=== PATIENT | male | born 1950 | race Hispanic/Latino ===

== ENCOUNTER 2018-04-04 06:36 | Day surgery (SDC) | payer MEDICARE, BC ==
[2015-03-10 09:53] VITALS: BMI 34.4
[2018-04-04 07:02] VITALS: RESP 20
[2018-04-04 07:10] LABS: BASO # 0.03 K/mm3 (0.0-2.0); BASO % 0.3 % (0.0-3.0); EOS # 0.2 (0.0-0.7); EOS % 1.9 % (1.5-5.0); GRAN # 6.82 (1.4-6.5); HEMOGLOBIN 15.3 g/dL (14.0-18.0); LYMPH # 3.9 (1.2-3.4); LYMPH % 33.4 % (22.0-35.0); MEAN CELL VOLUME 83.2 fl (80.0-105.0); MEAN CORPUSCULAR HGB CONC 33.6 g/dl (31.0-37.0); MEAN PLATELET VOLUME 11.5 fl (7.0-11.0); MONO # 0.8 (0.1-0.6); MONO % 6.4 % (1.0-6.0); RBC 5.47 10^6/uL (3.5-6.1); RED CELL DISTRIBUTION WIDTH 13.9 % (11.5-14.5); WHITE BLOOD COUNT 11.7 10^3/ul (4.5-11.0)
[2018-04-04 07:16] LABS: INR 1.09; PARTIAL THROMBOPLASTIN TIME 26.7 Seconds (25.1-36.5); PROTHROMBIN TIME 12.6 SECONDS (9.4-12.5)
[2018-04-04] MEDS ORDERED: Lidocaine PF 2% (5 ml) Inj (For Cardiac Arrhy) ONE (08:01)
[2018-04-04] MEDS ORDERED: Propofol 10 mg/ml Inj (20 ML) ONE ×3 (08:01→08:37)
[2018-04-04] MEDS ORDERED: Sodium Chloride 0.9% 1,000 ML IV SCH (09:30)
[2018-04-04 10:11] VITALS: BP 138/72; PULSE 65; TEMP 97.7; O2SAT 98
== END 2018-04-04 10:57 | disposition home or self-care (01) ==
LOC: ENDO 06:36
PROVIDERS: ATTEND Internal Medicine Gastroenterology
DX: Z12.11 Encounter for screening for malignant neoplasm of colon (principal); D12.2 Benign neoplasm of ascending colon; D12.3 Benign neoplasm of transverse colon; K62.5 Hemorrhage of anus and rectum; K57.30 Diverticulosis of large intestine without perforation or abscess without bleeding; Q43.8 Other specified congenital malformations of intestine; K64.8 Other hemorrhoids; R19.7 Diarrhea, unspecified; E11.9 Type 2 diabetes mellitus without complications; I10 Essential (primary) hypertension; Z86.010 Personal history of colon polyps; Z86.718 Personal history of other venous thrombosis and embolism; Z90.49 Acquired absence of other specified parts of digestive tract
CPT/HCPCS: 36415; 45380; 45384; 45385; 85025; 85610; 85730; 88305; J2704; J3010; J7030

== ENCOUNTER 2018-05-27 09:24 | Inpatient (IN) | payer MEDICARE, BC ==
[2015-03-10 09:53] VITALS: BMI 34.4
[2018-05-27] MEDS ORDERED: HYDROmorphone 0.5 mg/0.5 ml ISec IVP PRN (09:35)
[2018-05-27] MEDS ORDERED: Lactated Ringer's 1,000 ML IV SCH ×2 (09:45→12:30)
[2018-05-27 10:37] LABS: BASO # 0.01 K/mm3 (0.0-2.0); BASO % 0.1 % (0.0-3.0); EOS # 0.1 (0.0-0.7); EOS % 0.7 % (1.5-5.0); GRAN # 5.98 (1.4-6.5); GRAN % 61.1 % (50.0-68.0); HEMOGLOBIN 13.9 g/dL (14.0-18.0); LYMPH # 3.1 (1.2-3.4); LYMPH % 31.5 % (22.0-35.0); MEAN CORPUSCULAR HEMOGLOBIN 28.4 pg (25.0-35.0); MEAN CORPUSCULAR HGB CONC 34.2 g/dl (31.0-37.0); MEAN PLATELET VOLUME 11.1 fl (7.0-11.0); MONO # 0.7 (0.1-0.6); MONO % 6.6 % (1.0-6.0); RBC 4.89 10^6/uL (3.5-6.1); RED CELL DISTRIBUTION WIDTH 13.8 % (11.5-14.5); WHITE BLOOD COUNT 9.8 10^3/uL (4.5-11.0)
[2018-05-27 10:42] LABS: INR 1.2; PROTHROMBIN TIME 13.8 SECONDS (9.4-12.5)
[2018-05-27 10:47] LABS: BLOOD UREA NITROGEN 13 mg/dL (7-21); CALCIUM 8.7 mg/dL (8.4-10.5); GFR NON-AFRICAN AMERICAN > 60
[2018-05-27] MEDS ORDERED: Midazolam 2 MG/2 ML VIAL ONE (11:43)
[2018-05-27] MEDS ORDERED: Propofol 10 mg/ml Inj (20 ML) ONE (11:43)
[2018-05-27] MEDS ORDERED: Rocuronium 10 mg/ml (5 ml) ONE ×2 (11:45→13:29)
[2018-05-27] MEDS ORDERED: metroNIDAZOLE IV 500 mg/100 ml 500 MG/100 ML BAG ONE (12:45)
[2018-05-27] MEDS ORDERED: Ciprofloxacin 400mg/200ml D5W 400 MG/200 ML BAG IVPB ONE (12:46)
[2018-05-27] MEDS ORDERED: Bupivacaine 0.5% 50 ML IJ ONE (12:46)
[2018-05-27] MEDS ORDERED: MetroNIDAZOLE 500 mg/100 ml IVPB ONE (12:47)
[2018-05-27] MEDS ORDERED: Ciprofloxacin 400mg/200ml D5W IVPB ONE (12:47)
[2018-05-27] MEDS ORDERED: Bupivacaine 0.5% Inj(30mL) IJ ONE ×2 (13:05→14:50)
[2018-05-27] MEDS ORDERED: Sevoflurane - Inhalation Anesthetic Liq (250 ml) ONE (13:29)
[2018-05-27] MEDS ORDERED: Neostigmine Methylsulfate 3mg/3ml Syringe IV ONE (13:42)
[2018-05-27] MEDS ORDERED: Glycopyrrolate 0.2 mg/ml (2ml vial) ONE (13:43)
--- NOTE | 2018-05-27 15:15 | PCM.SURG1 ---
Surgeon's Initial Post Op Note - Surgeon's Notes Surgeon: Dr. Day Chartered Wealth Manager: Dr. Correa PGY4, Dr. Lees PGY3 Type of Anesthesia: General Endo Pre-Operative Diagnosis: Multiple right colon tubuloadenomas Operative Findings: see operative report Post-Operative Diagnosis: same Operation Performed: open right hemicolectomy. ileocolic anastomosis Specimen/Specimens Removed: right colon and distal portion of ileum Estimated Blood Loss: EBL {In ML}: 200 Blood Products Given: N/A Drains Used: No Drains Post-Op Condition: Good Date of Surgery/Procedure: 05/27/18 Time of Surgery/Procedure: 15:14
[2018-05-27] MEDS ORDERED: HYDROmorphone 0.5 mg/0.5 ml ISec IVP ONE ×2 (15:30→16:05)
[2018-05-27] MEDS ORDERED: HYDROmorphone 0.5 mg/0.5 ml ISec ONE ×2 (15:35→16:12)
[2018-05-27] MEDS: metroNIDAZOLE IV 500 mg/100 ml 500 MG/100 ML BAG IVPB SCH (20:17)
[2018-05-27] MEDS ORDERED: Influenza Vaccine 60 mcg/0.5 mL SYR (4YR UP) IM ONE (21:27)
[2018-05-27] MEDS ORDERED: Pneumococcal 23-Valent Vaccine IM ONE (21:27)
[2018-05-27] MEDS: Insulin Reg-LOW-Coverage SC SCH (21:59)
[2018-05-27] MEDS ORDERED: metroNIDAZOLE IV 500 mg/100 ml 500 MG/100 ML BAG IVPB SCH (22:00)
[2018-05-27] MEDS: HYDROmorphone 1 mg/ml ISec IVP PRN (23:08)
[2018-05-28] MEDS: Ciprofloxacin 400mg/200ml D5W 400 MG/200 ML BAG IVPB SCH ×2 (00:39→12:36)
[2018-05-28] MEDS: metroNIDAZOLE IV 500 mg/100 ml 500 MG/100 ML BAG IVPB SCH (04:15)
[2018-05-28] MEDS: HYDROmorphone 1 mg/ml ISec IVP PRN ×5 (04:18→22:56)
[2018-05-28 06:45] LABS: BASO # 0.01 K/mm3 (0.0-2.0); BASO % 0.1 % (0.0-3.0); EOS # 0.1 (0.0-0.7); EOS % 0.4 % (1.5-5.0); GRAN # 8.47 (1.4-6.5); GRAN % 74.5 % (50.0-68.0); HEMOGLOBIN 12.4 g/dL (14.0-18.0); LYMPH % 17.5 % (22.0-35.0); MEAN CELL VOLUME 83.2 fl (80.0-105.0); MEAN CORPUSCULAR HEMOGLOBIN 27.7 pg (25.0-35.0); MEAN CORPUSCULAR HGB CONC 33.3 g/dl (31.0-37.0); MEAN PLATELET VOLUME 11.5 fl (7.0-11.0); MONO # 0.9 (0.1-0.6); MONO % 7.5 % (1.0-6.0); RBC 4.47 10^6/uL (3.5-6.1); RED CELL DISTRIBUTION WIDTH 13.9 % (11.5-14.5); WHITE BLOOD COUNT 11.4 10^3/uL (4.5-11.0)
[2018-05-28 07:14] LABS: BLOOD UREA NITROGEN 9 mg/dL (7-21); GFR NON-AFRICAN AMERICAN > 60
[2018-05-28] MEDS ORDERED: Potassium Ch 20mEq in D5-1/2NS 1,000 ML IV SCH (08:00)
[2018-05-28] MEDS: Insulin Reg-LOW-Coverage SC SCH ×4 (08:49→22:03)
[2018-05-28] MEDS: Enoxaparin 40 mg Syringe SC SCH (09:08)
--- NOTE | 2018-05-28 10:11 | CP.PCM.PN ---
Subjective - Date & Time of Evaluation Date of Evaluation: 05/28/18 Time of Evaluation: 07:00 - Subjective Subjective: General Surgery Dr. Engel Pt S&E @bedside. Pt s/p open right hemicolectomy. Pt tolerated procedure well w/ no complications. No acute events overnight. pt has no complaints. pain well controlled. denies F/C, N/V, D/C. tolerating CLD. (-)Flatus/BM Objective - Vital Signs/Intake and Output Vital Signs (last 24 hours): Temp Pulse Resp BP Pulse Ox 98.0 F 88 20 140/80 96 05/28/18 06:00 05/28/18 06:00 05/28/18 06:00 05/28/18 09:08 05/28/18 06:00 Intake and Output: 05/28/18 05/28/18 06:59 18:59 Intake Total 1740 Output Total 2100 Balance -360 - Medications Medications: Current Medications Acetaminophen (Tylenol 325mg Tab) 650 mg PO Q6H PRN PRN Reason: Pain, Mild (1-3) Amlodipine Besylate (Norvasc) 10 mg PO QAM [facility] Last Admin: 05/28/18 09:08 Dose: 10 mg Atorvastatin Calcium ([facility]) [facility] [place] Last Admin: 05/28/18 09:08 Dose: 20 mg Enoxaparin Sodium (Lovenox) 40 mg SC DAILY [facility]; Protocol Last Admin: 05/28/18 09:08 Dose: 40 mg Glipizide (Glucotrol) 5 mg PO BID [facility] Last Admin: 05/28/18 09:08 Dose: 5 mg Hydromorphone HCl (Dilaudid) 1 mg IVP Q4H PRN PRN Reason: Pain, moderate (4-7) Last Admin: 05/28/18 08:49 Dose: 1 mg Ciprofloxacin (Cipro 400mg/200ml Dsw) 400 mg in 200 mls @ 133.3 mls/hr IVPB Q12H [facility]; Protocol Stop: 05/28/18 14:18 Last Admin: 05/28/18 00:39 Dose: 133.3 mls/hr Potassium Chloride/Dextrose/Sod Cl (Potassium Chl 20 Meq In D5-1/2ns) 1,000 mls @ 70 mls/hr IV .[id number] [facility] Last Admin: 05/28/18 09:32 Dose: 70 mls/hr Insulin Human Regular (Humulin R Low) 0 units SC ACHS [facility]; Protocol Last Admin: 05/28/18 08:49 Dose: 1 unit Metformin HCl (Glucophage) 1,000 mg PO BID [facility] Last Admin: 05/28/18 09:08 Dose: 1,000 mg Ondansetron HCl (Zofran Inj) 4 mg IVP Q6 PRN PRN Reason: Nausea/Vomiting Ramipril (Altace) 10 mg PO QAM [facility] Last Admin: 05/28/18 09:07 Dose: 10 mg - Labs Labs: 05/28/18 06:00 05/28/18 06:00 PT 13.8 SECONDS (9.4-12.5) H 05/27/18 10:25 INR 1.20 05/27/18 10:25 APTT 27.0 Seconds (25.1-36.5) 05/27/18 10:25 - Constitutional Appears: Non-toxic, No Acute Distress - Head Exam Head Exam: NORMAL INSPECTION - Eye Exam Eye Exam: Normal appearance - ENT Exam ENT Exam: Mucous Membranes Moist - Respiratory Exam Respiratory Exam: NORMAL BREATHING PATTERN. absent: Accessory Muscle Use, Respiratory Distress - Cardiovascular Exam Cardiovascular Exam: absent: Bradycardia, Tachycardia - GI/Abdominal Exam GI & Abdominal Exam: Soft, Tenderness (appropriate TTP yaneth-incisonal). absent: Distended, Firm, Guarding, Rigid, Rebound Additional comments: incisions c/d/i - Exam Additional comments: shankar in place draining clear yellow urine - Neurological Exam Neurological Exam: Alert, Awake, Oriented x3 - Psychiatric Exam Psychiatric exam: Normal Affect, Normal Mood - Skin Skin Exam: Dry, Intact, Normal Color, Warm Assessment and Plan - Assessment and Plan (Free Text) Assessment: 67 y/o M POD#1 s/p R hemicolectomy Plan: - cont CLD - d/c shankar - strict Is&Os - transition to PO pain meds - monitor bowel function - Physical Therapy eval - encourage OOB to chair/Amb/IS use Pt discussed w/ Dr. Toro Blankenship DO PGY3
--- NOTE | 2018-05-28 14:02 | CP.PCM.CON ---
<Elliott Chance - Last Filed: 05/28/18 15:12> History of Present Illness - History of Present Illness History of Present Illness: Elliott Chance PGY2 IM Consult Note for Dr. Jones Mr. Horvath is a 67 year old male with a PMH of DM2, HTN, HLD, nephrolithiasis and BPH who was admitted for multiple right colon tubular adenomas S/P open right hemicolectomy, with ileocolic anastomosis performed on 05/27/[address] Engel. Medical team is consulted for medical management of chronic diseases. The patient had underwent a colonoscopy with Dr. Tijerina on 04/04/18 which showed diverticulosis, colon polyps, ascending colon polypoid lesion, hypotonic redundant colon and internal hemorrhoids. Biopsies collected from this colonoscopy were positive for tubular adenoma. When evaluated post-op, the patient denies severe abdominal pain, nausea/vomiting, chest pain or shortness of breath, dysuria or difficulty urinating, weakness, headaches. He also denies passing flatus or any BMs, but he is urinating without difficulty. His pain is tolerated on the current regimen. Prior charts were reviewed including postop notes, and endoscopy/pathology reports. 12 point ROS was reviewed and is otherwise unremarkable. PMD: Dr. francis PMH: As above PSH: Prostate surgery, umbilical hernia x2, mastoid cyst removal x2, craniotomy Meds: As per MAR, reviewed Allergies: Penicillin (hives) SHx: Former tobacco smoker (quit more than 15 years ago), regular marijuana user , denies EtOH or other drug use FHx: Patient denies history of heart disease or cancers Review of Systems - Review of Systems All systems: reviewed and no additional remarkable complaints except (as per HPI) Past Patient History - Past Medical History & Family History Past Medical History?: Yes Past Family History: Reviewed and not pertinent - Past Social History Smoking Status: Former Smoker Alcohol: None Drugs: Cannabis - CARDIAC Hx Cardiac Disorders: No Hx Hypercholesterolemia: Yes Hx Hypertension: Yes Hx Pacemaker: No - PULMONARY Hx Respiratory Disorders: No (SMOKED 15 YRS AGO) - NEUROLOGICAL Hx Dizziness: Yes (VERTIGO) Hx Vertigo: Yes - HEENT Hx HEENT Problems: No - RENAL Hx Chronic Kidney Disease: No - ENDOCRINE/METABOLIC Hx Endocrine Disorders: Yes Hx Diabetes Mellitus Type 2: Yes - HEMATOLOGICAL/ONCOLOGICAL Hx Blood Disorders: Yes - INTEGUMENTARY Hx Dermatological Problems: No - MUSCULOSKELETAL/RHEUMATOLOGICAL Hx Musculoskeletal Disorders: No Hx Falls: No - GASTROINTESTINAL Hx Gastrointestinal Disorders: Yes (UMBILICAL NERNIA,INGUINAL HERNIA,APPENDECTOMY,) - GENITOURINARY/GYNECOLOGICAL Hx Genitourinary Disorders: Yes Hx Prostate Problems: Yes - PSYCHIATRIC Hx Emotional Abuse: No Hx Physical Abuse: No Hx Substance Use: No - SURGICAL HISTORY Hx Surgeries: Yes (MASTOIDECTOMY X 2,UMBILICAL HERNIA REPAIR,PROSTATE SX,CRANIAL SX) Hx Appendectomy: Yes - ANESTHESIA Hx Anesthesia Reactions: Yes ("WAKES UP LOUD") Hx Malignant Hyperthermia: No Meds Allergies/Adverse Reactions: Allergies Allergy/AdvReac Type Severity Reaction Status Date / Time Penicillins Allergy RASH Verified 05/27/18 21:01 - Medications Medications: Current Medications Acetaminophen (Tylenol 325mg Tab) 650 mg PO Q6H PRN PRN Reason: Pain, Mild (1-3) Amlodipine [facility]ylate ([facility]asc) [facility] [place] Last Admin: 05/28/18 09:08 Dose: 10 mg Atorvastatin Calcium (Lipitor) 20 mg PO QAM [facility] Last Admin: 05/28/18 09:08 Dose: 20 mg Enoxaparin Sodium (Lovenox) 40 mg SC DAILY [facility]; Protocol Last Admin: 05/28/18 09:08 Dose: 40 mg Glipizide (Glucotrol) 5 mg PO BID [facility] Last Admin: 05/28/18 09:08 Dose: 5 mg Hydromorphone HCl (Dilaudid) 1 mg IVP Q4H PRN PRN Reason: Pain, moderate (4-7) Last Admin: 05/28/18 13:51 Dose: 1 mg Ciprofloxacin (Cipro 400mg/200ml Dsw) 400 mg in 200 mls @ 133.3 mls/hr IVPB Q12H [facility]; Protocol Stop: 05/28/18 14:18 Last Admin: 05/28/18 12:36 Dose: 133.3 mls/hr Insulin Human Regular (Humulin R Low) 0 units SC ACHS [facility]; Protocol Last Admin: 05/28/18 12:05 Dose: 2 unit Metformin HCl (Glucophage) 1,000 mg PO BID [facility] Last Admin: 05/28/18 09:08 Dose: 1,000 mg Ondansetron HCl (Zofran Inj) 4 mg IVP Q6 PRN PRN Reason: Nausea/Vomiting Pantoprazole Sodium (Protonix Inj) 40 mg IVP DAILY [facility] Last Admin: 05/28/18 12:05 Dose: 40 mg Ramipril (Altace) 10 mg PO QAM [facility] Last Admin: 05/28/18 09:07 Dose: 10 mg Physical Exam - Constitutional Appears: Well, Non-toxic, No Acute Distress - Head Exam Head Exam: ATRAUMATIC, NORMAL INSPECTION, NORMOCEPHALIC - Eye Exam Eye Exam: EOMI, Normal appearance, PERRL - ENT Exam ENT Exam: Mucous Membranes Moist, Normal External Ear Exam, Normal Oropharynx - Neck Exam Neck exam: Positive for: Full Rom, Normal Inspection. Negative for: Tenderness - Respiratory Exam Respiratory Exam: NORMAL BREATHING PATTERN. absent: Rales, Rhonchi, Wheezes, Respiratory Distress - Cardiovascular Exam Cardiovascular Exam: RRR, +S1, +S2. absent: JVD, Systolic Murmur - GI/Abdominal Exam GI & Abdominal Exam: Hyperactive Bowel Sounds, Soft. absent: Distended, Tenderness Additional comments: midline incision post surgery - Extremities Exam Extremities exam: Positive for: full ROM, normal inspection. Negative for: pedal edema, tenderness Additional comments: AE stockings worn - Back Exam Back exam: NORMAL INSPECTION - Neurological Exam Neurological exam: Alert, CN II-XII Intact, Normal Gait, Oriented x3 - Psychiatric Exam Psychiatric exam: Normal Affect, Normal Mood - Skin Skin Exam: Normal Color, Warm Results - Vital Signs Recent Vital Signs: Last Vital Signs Temp 98.0 F 05/28/18 06:00 Pulse 88 05/28/18 06:00 Resp 20 05/28/18 06:00 BP 140/80 05/28/18 09:08 Pulse Ox 96 05/28/18 06:00 - Labs Result Diagrams: 05/28/18 06:00 05/28/18 06:00 Labs: Laboratory Results - last 24 hr 05/27/18 05/28/18 05/28/18 21:03 06:00 06:00 WBC 11.4 H RBC 4.47 Hgb 12.4 L Hct 37.2 L MCV 83.2 MCH 27.7 MCHC 33.3 RDW 13.9 Plt Count 165 MPV 11.5 H Gran % 74.5 H Lymph % (Auto) 17.5 L [place] % (Auto) 7.5 H Eos % (Auto) 0.4 L Baso % (Auto) 0.1 Gran # 8.47 H Lymph # (Auto) 2.0 [place] # (Auto) 0.9 H Eos # (Auto) 0.1 Baso # (Auto) 0.01 Sodium 138 Potassium 4.1 Chloride 106 Carbon Dioxide 24 Anion Gap 13 BUN 9 Creatinine 0.8 Est GFR ( Amer) > 60 Est GFR (Non-Af Amer) > 60 POC Glucose (mg/dL) 206 H Random Glucose 193 H Calcium 8.0 L Phosphorus 3.1 Magnesium 1.9 05/28/18 05/28/18 07:23 11:17 WBC RBC Hgb Hct MCV MCH MCHC RDW Plt Count MPV Gran % Lymph % (Auto) [place] % (Auto) Eos % (Auto) Baso % (Auto) Gran # Lymph # (Auto) [place] # (Auto) Eos # (Auto) Baso # (Auto) Sodium Potassium Chloride Carbon Dioxide Anion Gap BUN Creatinine Est GFR ( Amer) Est GFR (Non-Af Amer) POC Glucose (mg/dL) 173 H 209 H Random Glucose Calcium Phosphorus Magnesium Assessment & Plan - Assessment and Plan (Free Text) Assessment: 67 year old male with a PMH of DM2, HTN, HLD, nephrolithiasis and BPH who was admitted for multiple right colon tubular adenomas S/P open right hemicolectomy, with ileocolic anastomosis performed on 05/27/[address] Engel. He is POD 1 and is tolerating his CLD well, but with no flatus or BM's yet. Medical team is consulted for management of chronic diseases. VS, prior chart and labs were reviewed. BP is stable on current medications. His FS are stable on current regimen. His pain is also tolerable. Plan: - Metformin held to reduce risk of nephropathy - Continue insulin sliding scale with goal FS 100-180 - Continue glipizide - Continue Lipitor - Continue Norvasc and ramipril with goal of BP in normal range around 130/80 - Continue Lovenox for DVT PPX - Continue Protonix for GI PPX - Continue Flomax - Continue Zofran as needed for nausea - Continue Tylenol as needed for fever - Continue Dilaudid as needed for pain - Encouraged on incentive spirometry use - There are no current signs of infection, but monitor for fevers - Dietitian referral is ordered - Activity as tolerated - Advance diet as tolerated - Monitor for BMs - PT eval is pending - Urology is consulted for history of BPH - We will order bladder scan as needed - Further recs per Dr. Jones Case was reviewed and discussed with attending, Dr. Karen Chance PGY 2 <Roland Jones - Last Filed: 05/28/18 16:36> Meds - Medications Medications: Current Medications Acetaminophen (Tylenol 325mg Tab) 650 mg PO Q6H PRN PRN Reason: Pain, Mild (1-3) Amlodipine Besylate (Norvasc) 10 mg PO QAM [facility] Last Admin: 05/28/18 09:08 Dose: 10 mg Atorvastatin Calcium (Lipitor) 20 mg PO QAM [facility] Last Admin: 05/28/18 09:08 Dose: 20 mg Enoxaparin Sodium (Lovenox) 40 mg SC DAILY [facility]; Protocol Last Admin: 05/28/18 09:08 Dose: 40 mg Glipizide (Glucotrol) 5 mg PO BID [facility] Last Admin: 05/28/18 09:08 Dose: 5 mg Hydromorphone HCl (Dilaudid) 1 mg IVP Q4H PRN PRN Reason: Pain, severe (8-10) Insulin Human Regular (Humulin R Low) 0 units SC ACHS [facility]; Protocol Last Admin: 05/28/18 12:05 Dose: 2 unit Metformin HCl (Glucophage) 1,000 mg PO BID [facility] Last Admin: 05/28/18 09:08 Dose: 1,000 mg Ondansetron HCl (Zofran Inj) 4 mg IVP Q6 PRN PRN Reason: Nausea/Vomiting Pantoprazole Sodium (Protonix Inj) 40 mg IVP DAILY [facility] Last Admin: 05/28/18 12:05 Dose: 40 mg Ramipril (Altace) 10 mg PO QAM [facility] Last Admin: 05/28/18 09:07 Dose: 10 mg Tramadol HCl (Ultram) 50 mg PO Q6 PRN PRN Reason: Pain, moderate (4-7) Results - Vital Signs Recent Vital Signs: Last Vital Signs Temp 98.0 F 05/28/18 06:00 Pulse 88 05/28/18 06:00 Resp 20 05/28/18 06:00 BP 140/80 05/28/18 09:08 Pulse Ox 96 05/28/18 06:00 - Labs Result Diagrams: 05/28/18 06:00 05/28/18 06:00 Labs: Laboratory Results - last 24 hr 05/27/18 05/28/18 05/28/18 21:03 06:00 06:00 WBC 11.4 H RBC 4.47 Hgb 12.4 L Hct 37.2 L MCV 83.2 MCH 27.7 MCHC 33.3 RDW 13.9 Plt Count 165 MPV 11.5 H Gran % 74.5 H Lymph % (Auto) 17.5 L [place] % (Auto) 7.5 H Eos % (Auto) 0.4 L Baso % (Auto) 0.1 Gran # 8.47 H Lymph # (Auto) 2.0 [place] # (Auto) 0.9 H Eos # (Auto) 0.1 Baso # (Auto) 0.01 Sodium 138 Potassium 4.1 Chloride 106 Carbon Dioxide 24 Anion Gap 13 BUN 9 Creatinine 0.8 Est GFR ( Amer) > 60 Est GFR (Non-Af Amer) > 60 POC Glucose (mg/dL) 206 H Random Glucose 193 H Calcium 8.0 L Phosphorus 3.1 Magnesium 1.9 05/28/18 05/28/18 07:23 11:17 WBC RBC Hgb Hct MCV MCH MCHC RDW Plt Count MPV Gran % Lymph % (Auto) [place] % (Auto) Eos % (Auto) Baso % (Auto) Gran # Lymph # (Auto) [place] # (Auto) Eos # (Auto) Baso # (Auto) Sodium Potassium Chloride Carbon Dioxide Anion Gap BUN Creatinine Est GFR ( Amer) Est GFR (Non-Af Amer) POC Glucose (mg/dL) 173 H 209 H Random Glucose Calcium Phosphorus Magnesium Assessment & Plan - Assessment and Plan (Free Text) Plan: Pt seen and examined. I have reviewed the note of the medical affairs director and agree with it. I have discussed the assessment and plan with the resident. I have reviewed the patient's labs and medications. Pt with R hemicolectomy doing well. I have been asked by surgery to consult for management for the DM-2 and HTN. Pt will continue with Glipizide but hold his Metformin. He is on Norvasc and Ramipril for his HTN. He is on Flomax for his BPH. He was sitting in a chair and not having any pain. Check FS and cover with insulin prn. Dyslipidemia is being treated with Lipitor.
--- NOTE | 2018-05-28 20:34 | OP ---
PROCEDURE DATE: 05/27/2018 PREOPERATIVE DIAGNOSIS: Sessile polyp of the right colon. POSTOPERATIVE DIAGNOSIS: Sessile polyp of the right colon. PROCEDURE PERFORMED: Open right colectomy. SURGEON: Massimo Engel MD ASSISTANTS: Dr. Correa and Dr. Lees. ANESTHESIA: General endotracheal anesthesia. ANESTHESIOLOGIST: Dr. Zimmer. ESTIMATED BLOOD LOSS: 100 mL. SPECIMEN: Right colon. INDICATION FOR PROCEDURE: The patient is a 67-year-old male with history of sessile polyp at the area adjacent to the ileocecal valve in the colon. This was attempted to be resected; however, unable to be resected and therefore, decision was made to proceed with surgical excision of the right colon. DESCRIPTION OF PROCEDURE: The patient was brought to the operating room and placed on the operating table in supine position. The patient was connected to EKG, blood pressure, and pulse oximetry monitors. The patient then had a time-out procedure done where everybody in the room agreed as to the patient's identity, diagnosis, and procedure to be performed. Both the surgical plan for the procedure as well as the postoperative course were discussed with the OR team. The patient underwent general endotracheal anesthesia and was prepped and draped in the usual sterile fashion. Using a #15 blade, an incision was made extending from just below the umbilicus to above the mid epigastric area. This incision was carried through the subcutaneous fat and fascia down into the abdominal cavity. Once the access to the abdominal cavity was obtained, the inferior portion of the incision appeared to contain a mesh from prior hernia repair. The mesh was carefully trimmed out and protected with lap bandage. Now, we proceeded with careful mobilization of the right colon by incising the tissue along the right pericolic gutter and mobilizing the right colic mesentery through the cecum and all the way up to the hepatic flexure and prostate. Once the specimen was completely mobilized, it was elevated up in there and the ileocecal artery was identified at its base just below the duodenum. This was carefully dissected out and ligated at its base by sweeping all the lymph nodes adjacent to it with this specimen. Once the artery was ligated, we then proceeded and transected the mesentery towards the small bowel just about 10 cm proximal to the ileocecal valve. The colon was transected at about proximal transverse colon including a portion of the right branch of the transverse colic artery. All this was then sent as a specimen. A standard [id number] anastomosis was created between the ileum and transverse colon using LIANNE and TA staplers. Once the anastomosis was completed, the stitch was placed in the crotch of the anastomosis for reinforcement. The anastomoses were returned into the abdominal cavity. The abdominal cavity was then copiously irrigated and all the irrigant fluid was suctioned out. There was excellent hemostasis noted. We then proceeded with closure of the wound using #1 PDS in a running fashion. The skin was closed using surgical constance. The patient tolerated the procedure well and there were no complications. The patient was awakened and transferred to recovery room for further observation. Massimo Engel MD
[2018-05-29] MEDS: Insulin Reg-LOW-Coverage SC SCH ×4 (08:05→22:44)
--- NOTE | 2018-05-29 09:36 | CP.PCM.PN ---
<Elliott Chance - Last Filed: 05/29/18 11:30> Subjective - Date & Time of Evaluation Date of Evaluation: 05/29/18 Time of Evaluation: 07:36 - Subjective Subjective: Elliott Chance PGY2 IM Progress Note for Dr. Jones Patient was seen and examined at bedside. There were no acute overnight events. The patient remains afebrile and pain is well controlled. The patient denies passing flatus or BM's but is urinating w/ no issues and is having hiccups. He is tolerating his CLD well. Objective - Vital Signs/Intake and Output Vital Signs (last 24 hours): Temp Pulse Resp BP Pulse Ox 98.4 F 91 H 20 148/91 H 96 05/29/18 08:46 05/29/18 08:46 05/29/18 08:46 05/29/18 08:46 05/29/18 08:46 Intake and Output: 05/29/18 05/29/18 06:59 18:59 Intake Total 480 Output Total 800 Balance -320 - Medications Medications: Current Medications Acetaminophen (Tylenol 325mg Tab) 650 mg PO Q6H PRN PRN Reason: Pain, Mild (1-3) Amlodipine Besylate (Norvasc) 10 mg PO QAM [facility] Last Admin: 05/28/18 09:08 Dose: 10 mg Atorvastatin Calcium (Lipitor) 20 mg PO QAM [facility] Last Admin: 05/28/18 09:08 Dose: 20 mg Enoxaparin Sodium (Lovenox) 40 mg SC DAILY [facility]; Protocol Last Admin: 05/28/18 09:08 Dose: 40 mg Glipizide (Glucotrol) 5 mg PO BID [facility] Last Admin: 05/28/18 18:12 Dose: 5 mg Hydromorphone HCl (Dilaudid) 1 mg IVP Q4H PRN PRN Reason: Pain, severe (8-10) Last Admin: 05/28/18 22:56 Dose: 1 mg Insulin Human Regular (Humulin R Low) 0 units SC [facility]; Protocol Last Admin: 05/29/18 08:05 Dose: Not Given Metformin HCl (Glucophage) 1,000 mg PO BID [facility] Last Admin: 05/28/18 09:08 Dose: 1,000 mg Ondansetron HCl (Zofran Inj) 4 mg IVP Q6 PRN PRN Reason: Nausea/Vomiting Pantoprazole Sodium (Protonix Inj) 40 mg IVP DAILY [facility] Last Admin: 05/28/18 12:05 Dose: 40 mg Ramipril (Altace) 10 mg PO QAM [facility] Last Admin: 05/28/18 09:07 Dose: 10 mg Tramadol HCl (Ultram) 50 mg PO Q6 PRN PRN Reason: Pain, moderate (4-7) Last Admin: 05/29/18 04:09 Dose: 50 mg - Labs Labs: 05/28/18 06:00 05/28/18 06:00 PT 13.8 SECONDS (9.4-12.5) H 05/27/18 10:25 INR 1.20 05/27/18 10:25 APTT 27.0 Seconds (25.1-36.5) 05/27/18 10:25 - Constitutional Appears: Well, Non-toxic, No Acute Distress - Head Exam Head Exam: ATRAUMATIC, NORMAL INSPECTION, NORMOCEPHALIC - Eye Exam Eye Exam: EOMI, Normal appearance, PERRL - ENT Exam ENT Exam: Mucous Membranes Moist, Normal Oropharynx - Neck Exam Neck Exam: Full ROM, Normal Inspection. absent: Tenderness - Respiratory Exam Respiratory Exam: NORMAL BREATHING PATTERN. absent: Rales, Rhonchi, Wheezes, Respiratory Distress - Cardiovascular Exam Cardiovascular Exam: RRR, +S1, +S2. absent: JVD, Murmur - GI/Abdominal Exam GI & Abdominal Exam: Soft, Normal Bowel Sounds. absent: Distended, Tenderness Additional comments: midline incision w/ sutures (c/d w/ no bleeding) - Extremities Exam Extremities Exam: Full ROM, Normal Inspection. absent: Pedal Edema, Tenderness - Back Exam Back Exam: NORMAL INSPECTION - Neurological Exam Neurological Exam: Alert, Awake, Normal Gait, Oriented x3 - Psychiatric Exam Psychiatric exam: Normal Affect, Normal Mood - Skin Skin Exam: Normal Color, Warm Assessment and Plan - Assessment and Plan (Free Text) Assessment: 67 year old male with a PMH of DM2, HTN, HLD, nephrolithiasis and BPH who was admitted for multiple right colon tubular adenomas S/P open right hemicolectomy, with ileocolic anastomosis POD2. He is tolerating his CLD well, but with no flatus or BM's yet. Medical team is consulted for management of chronic diseases. VS, prior chart and labs were reviewed. BP is stable on current medications. His FS are stable on current regimen. His pain is also tolerable. Plan: - Continue insulin sliding scale with goal FS 100-180 - Continue glipizide - Continue Lipitor - Continue Norvasc and ramipril with goal of BP in normal range around 130/80 - Continue Lovenox for DVT PPX - Continue Protonix for GI PPX - Continue Flomax - Continue Zofran as needed for nausea - Continue Tylenol as needed for fever - Continue Dilaudid as needed for pain - Encouraged on incentive spirometry use - There are no current signs of infection, but monitor for fevers - Dietitian referral is ordered - Activity as tolerated - Advance diet as tolerated - Monitor for BMs - PT eval is pending - Urology is consulted for history of BPH, however, patient is urinating w/o difficulty - We will order bladder scan as needed - care per primary surgery team - can d/c when cleared by surgery and should follow-up with Dr. Pugh within 2 weeks as outpatient - Further recs per Dr. Jones Case was reviewed and discussed with attending, Dr. Karen Chance PGY 2 <Roland Jones S - Last Filed: 05/29/18 19:41> Objective - Vital Signs/Intake and Output Vital Signs (last 24 hours): Temp Pulse Resp BP Pulse Ox 98.9 F 102 H 20 131/92 H 95 05/29/18 17:08 05/29/18 17:08 05/29/18 17:08 05/29/18 17:08 05/29/18 17:08 - Medications Medications: Current Medications Acetaminophen (Tylenol 325mg Tab) 650 mg PO Q6H PRN PRN Reason: Pain, Mild (1-3) Amlodipine Besylate (Norvasc) 10 mg PO QAM [facility] Last Admin: 05/29/18 11:00 Dose: 10 mg Atorvastatin Calcium (Lipitor) 20 mg PO QAM [facility] Last Admin: 05/29/18 11:00 Dose: 20 mg Enoxaparin Sodium (Lovenox) 40 mg SC DAILY [facility]; Protocol Last Admin: 05/29/18 11:00 Dose: 40 mg Glipizide (Glucotrol) 5 mg PO BID [facility] Last Admin: 05/29/18 17:45 Dose: 5 mg Insulin Human Regular (Humulin R Low) 0 units SC [facility]; Protocol Last Admin: 05/29/18 17:45 Dose: 1 unit Metformin HCl (Glucophage) 1,000 mg PO BID [facility] Last Admin: 05/28/18 09:08 Dose: 1,000 mg Ondansetron HCl (Zofran Inj) 4 mg IVP Q6 PRN PRN Reason: Nausea/Vomiting Pantoprazole Sodium (Protonix Ec Tab) 40 mg PO ACB [facility] Ramipril (Altace) 10 mg PO QAM [facility] Last Admin: 05/29/18 10:59 Dose: 10 mg Tramadol HCl (Ultram) 50 mg PO Q6 PRN PRN Reason: Pain, moderate (4-7) Last Admin: 05/29/18 12:39 Dose: 50 mg - Labs Labs: 05/28/18 06:00 05/28/18 06:00 PT 13.8 SECONDS (9.4-12.5) H 05/27/18 10:25 INR 1.20 05/27/18 10:25 APTT 27.0 Seconds (25.1-36.5) 05/27/18 10:25 Assessment and Plan - Assessment and Plan (Free Text) Assessment: Pt seen and examined. I have reviewed the note of the medical massage therapist and agree with it. I have discussed the assessment and plan with the resident. I have reviewed the patient's labs and medications. Pt doing well. Pain is controlled. Pt will be on Lipitor for dyslipidemia. He will be on Glipizide for DM-2 and is on an ISS with insulin coverage. Pt with Flomax for BPH. He is eating well. Pain is controlled.
[2018-05-29] MEDS: Enoxaparin 40 mg Syringe SC SCH (11:00)
--- NOTE | 2018-05-29 12:36 | CP.PCM.PN ---
Subjective - Date & Time of Evaluation Date of Evaluation: 05/29/18 Time of Evaluation: 12:33 - Subjective Subjective: Surgery: Dr. Engel Patient doing well today. Has been OOB, tolerating liquid diet. Denies flatus or BM. Pain controlled on PO medications. Objective - Vital Signs/Intake and Output Vital Signs (last 24 hours): Temp Pulse Resp BP Pulse Ox 98.4 F 91 H 20 148/91 H 96 05/29/18 08:46 05/29/18 08:46 05/29/18 08:46 05/29/18 11:00 05/29/18 08:46 Intake and Output: 05/29/18 05/29/18 06:59 18:59 Intake Total 480 Output Total 800 Balance -320 - Medications Medications: Current Medications Acetaminophen (Tylenol 325mg Tab) 650 mg PO Q6H PRN PRN Reason: Pain, Mild (1-3) [facility] Last Admin: 05/29/18 11:00 Dose: 10 mg Atorvastatin Calcium (Lipitor) [facility] Last Admin: 05/29/18 11:00 Dose: 20 mg Enoxaparin Sodium (Lovenox) 40 mg SC DAILY [facility]; Protocol Last Admin: 05/29/18 11:00 Dose: 40 mg Glipizide (Glucotrol) 5 mg PO BID [facility] Last Admin: 05/29/18 11:00 Dose: 5 mg Hydromorphone HCl (Dilaudid) 1 mg IVP Q4H PRN PRN Reason: Pain, severe (8-10) Last Admin: 05/28/18 22:56 Dose: 1 mg Insulin Human Regular (Humulin R Low) 0 units SC [facility]; Protocol Last Admin: 05/29/18 08:05 Dose: Not Given Metformin HCl (Glucophage) 1,000 mg PO BID [facility] Last Admin: 05/28/18 09:08 Dose: 1,000 mg Ondansetron HCl (Zofran Inj) 4 mg IVP Q6 PRN PRN Reason: Nausea/Vomiting Pantoprazole Sodium (Protonix Inj) 40 mg IVP DAILY [facility] Last Admin: 05/29/18 11:00 Dose: 40 mg Ramipril (Altace) [facility] Last Admin: 05/29/18 10:59 Dose: 10 mg Tramadol HCl (Ultram) 50 mg PO Q6 PRN PRN Reason: Pain, moderate (4-7) Last Admin: 05/29/18 04:09 Dose: 50 mg - Labs Labs: 05/28/18 06:00 05/28/18 06:00 PT 13.8 SECONDS (9.4-12.5) H 05/27/18 10:25 INR 1.20 05/27/18 10:25 APTT 27.0 Seconds (25.1-36.5) 05/27/18 10:25 - Constitutional Appears: Non-toxic, No Acute Distress - Head Exam Head Exam: ATRAUMATIC, NORMOCEPHALIC - Eye Exam Eye Exam: EOMI, Normal appearance - ENT Exam ENT Exam: Mucous Membranes Moist - Respiratory Exam Respiratory Exam: NORMAL BREATHING PATTERN. absent: Respiratory Distress - Cardiovascular Exam Cardiovascular Exam: REGULAR RHYTHM. absent: Tachycardia - GI/Abdominal Exam GI & Abdominal Exam: Soft. absent: Distended, Guarding, Tenderness, Rebound Additional comments: Incision CDI with dermabond closure - Extremities Exam Extremities Exam: Normal Inspection. absent: Calf Tenderness - Neurological Exam Neurological Exam: Alert, Awake, Oriented x3 - Psychiatric Exam Psychiatric exam: Normal Affect, Normal Mood - Skin Skin Exam: Dry, Normal Color, Warm Assessment and Plan - Assessment and Plan (Free Text) Assessment: 67 y/o male s/p right hemicolectomy POD2 Plan: -f/u bowel function -may advance diet this evening vs am to reg diet -OOB -IS use -ultram for pain -AE hose -lovenox -cont home meds -possible d/c 05/30 -d/w Dr. Engel [facility] PGY4
--- NOTE | 2018-05-30 07:25 | CP.PCM.PN ---
<Elliott Chance - Last Filed: 05/30/18 15:35> Subjective - Date & Time of Evaluation Date of Evaluation: 05/30/18 Time of Evaluation: 07:25 - Subjective Subjective: Elliott Chance PGY2 IM Progress Note for Dr. Jones Patient was seen and examined at bedside. The patient's diet was advanced to regular w/ moderate consistent carbs. He is still not passing flatus or had a BM, however, he has good bowel sounds. He denies any fevers/chills, n/v or severe abdominal pain. He has been tolerating PT well and had a steady gait and able to do stairs. VS and nursing notes were reviewed. Objective - Vital Signs/Intake and Output Vital Signs (last 24 hours): Temp Pulse Resp BP Pulse Ox 98.9 F 102 H 20 131/92 H 95 05/29/18 17:08 05/29/18 17:08 05/29/18 17:08 05/29/18 17:08 05/29/18 17:08 Intake and Output: 05/30/18 05/30/18 06:59 18:59 Intake Total 600 Balance 600 - Medications Medications: Current Medications Acetaminophen (Tylenol 325mg Tab) 650 mg PO Q6H PRN PRN Reason: Pain, Mild (1-3) Amlodipine [facility] ([facility]asc) [facility] Last Admin: 05/29/18 11:00 Dose: 10 mg Atorvastatin Calcium (Lipitor) 20 mg PO QAM [facility] Last Admin: 05/29/18 11:00 Dose: 20 mg Enoxaparin Sodium (Lovenox) 40 mg SC DAILY [facility]; Protocol Last Admin: 05/29/18 11:00 Dose: 40 mg Glipizide (Glucotrol) 5 mg PO BID [facility] Last Admin: 05/29/18 17:45 Dose: 5 mg Insulin Human Regular (Humulin R Low) 0 units SC [facility]; Protocol Last Admin: 05/29/18 22:44 Dose: Not Given Metformin HCl (Glucophage) 1,000 mg PO BID [facility] Last Admin: 05/28/18 09:08 Dose: 1,000 mg Ondansetron HCl (Zofran Inj) 4 mg IVP Q6 PRN PRN Reason: Nausea/Vomiting Pantoprazole Sodium (Protonix Ec Tab) 40 mg PO ACB [facility] Ramipril (Altace) 10 mg PO QAM [facility] Last Admin: 05/29/18 10:59 Dose: 10 mg Tramadol HCl (Ultram) 50 mg PO Q6 PRN PRN Reason: Pain, moderate (4-7) Last Admin: 05/30/18 02:50 Dose: 50 mg - Labs Labs: 05/28/18 06:00 05/28/18 06:00 PT 13.8 SECONDS (9.4-12.5) H 05/27/18 10:25 INR 1.20 05/27/18 10:25 APTT 27.0 Seconds (25.1-36.5) 05/27/18 10:25 - Constitutional Appears: Well, Non-toxic, No Acute Distress - Head Exam Head Exam: ATRAUMATIC, NORMAL INSPECTION, NORMOCEPHALIC - Eye Exam Eye Exam: EOMI, Normal appearance, PERRL - ENT Exam ENT Exam: Mucous Membranes Moist, Normal Oropharynx - Neck Exam Neck Exam: Full ROM, Normal Inspection. absent: Tenderness - Respiratory Exam Respiratory Exam: NORMAL BREATHING PATTERN. absent: Rales, Rhonchi, Wheezes, Respiratory Distress - Cardiovascular Exam Cardiovascular Exam: RRR, +S1, +S2. absent: JVD, Murmur - GI/Abdominal Exam GI & Abdominal Exam: Soft, Normal Bowel Sounds. absent: Distended, Tenderness Additional comments: midline incision w/ sutures (c/d w/ no bleeding) - Extremities Exam Extremities Exam: Full ROM, Normal Inspection. absent: Pedal Edema, Tenderness - Back Exam Back Exam: NORMAL INSPECTION - Neurological Exam Neurological Exam: Alert, Awake, Normal Gait, Oriented x3 - Psychiatric Exam Psychiatric exam: Normal Affect, Normal Mood - Skin Skin Exam: Normal Color, Warm Assessment and Plan - Assessment and Plan (Free Text) Assessment: 67 year old male with a PMH of DM2, HTN, HLD, nephrolithiasis and BPH who was admitted for multiple right colon tubular adenomas S/P open right hemicolectomy, with ileocolic anastomosis POD2. He is tolerating his CLD well, but with no flatus or BM's yet. Medical team is consulted for management of chronic diseases. VS, prior chart and labs were reviewed. BP is stable on current m edications. His FS are stable on current regimen. His pain is also tolerable. Plan: - Patient is medically clear for discharge - Continue insulin sliding scale with goal FS 100-180 - Continue glipizide - Continue Lipitor - Continue Norvasc and ramipril with goal of BP in normal range around 130/80 - Continue Lovenox for DVT PPX - Continue Protonix for GI PPX - Continue Flomax - Continue Zofran as needed for nausea - Continue Tylenol as needed for fever - Encouraged on incentive spirometry use - There are no current signs of infection, but monitor for fevers - Dietitian referral is ordered - Activity as tolerated - Monitor for BMs - PT recommending home w/ outpatient PT - care per primary surgery team - can d/c when cleared by surgery and should follow-up with Dr. Pugh within 2 weeks as outpatient - Further recs per Dr. Jones Case was reviewed and discussed with attending, Dr. Karen Chance PGY 2 <Roland Jones S - Last Filed: 05/30/18 16:44> Objective - Vital Signs/Intake and Output Vital Signs (last 24 hours): Temp Pulse Resp BP Pulse Ox 98.2 F 82 16 133/84 97 05/30/18 08:46 05/30/18 08:46 05/30/18 08:46 05/30/18 09:49 05/30/18 08:46 Intake and Output: 05/30/18 05/30/18 06:59 18:59 Intake Total 600 Balance 600 - Labs Labs: 05/28/18 06:00 05/28/18 06:00 PT 13.8 SECONDS (9.4-12.5) H 05/27/18 10:25 INR 1.20 05/27/18 10:25 APTT 27.0 Seconds (25.1-36.5) 05/27/18 10:25 Assessment and Plan - Assessment and Plan (Free Text) Plan: Pt seen and examined. I have reviewed the note of the medical housekeeper and agree with it. I have discussed the assessment and plan with the resident. I have reviewed the patient's labs and medications. Pt with R hemicolectomy. He is eating better and able to pass gas. DM-2 is controlled on meds. He is ISS and coverage with insulin. HTN is controlled. Pain is controlled.
[2018-05-30] MEDS ORDERED: Pantoprazole 40 mg EC Tab PO SCH (07:30)
[2018-05-30] MEDS: Insulin Reg-LOW-Coverage SC SCH (08:33)
[2018-05-30 08:47] VITALS: PULSE 82; RESP 16; TEMP 98.2; O2SAT 97
[2018-05-30] MEDS: Enoxaparin 40 mg Syringe SC SCH (09:49)
[2018-05-30 09:54] VITALS: BP 133/84
--- NOTE | 2018-05-30 10:11 | CP.PCM.DIS ---
Provider - Provider Date of Admission: 05/27/18 09:24 Attending physician: Massimo Engel MD Primary care physician: Nigel Pugh MD Consults: Dr. Pugh-PMD Time Spent in preparation of Discharge (in minutes): 30 Diagnosis - Discharge Diagnosis (1) Status post partial colectomy Status: Acute Priority: High Hospital Course - Lab Results Lab Results: Most Recent Lab Values WBC 11.4 10^3/uL (4.5-11.0) H 05/28/18 06:00 RBC 4.47 10^6/uL (3.5-6.1) 05/28/18 06:00 Hgb 12.4 g/dL (14.0-18.0) L 05/28/18 06:00 Hct 37.2 % (42.0-52.0) L 05/28/18 06:00 MCV 83.2 fl (80.0-105.0) 05/28/18 06:00 MCH 27.7 pg (25.0-35.0) 05/28/18 06:00 MCHC 33.3 g/dl (31.0-37.0) 05/28/18 06:00 RDW 13.9 % (11.5-14.5) 05/28/18 06:00 Plt Count 165 10^3/uL (120.0-450.0) 05/28/18 06:00 MPV 11.5 fl (7.0-11.0) H 05/28/18 06:00 Gran % 74.5 % (50.0-68.0) H 05/28/18 06:00 Lymph % (Auto) 17.5 % (22.0-35.0) L 05/28/18 06:00 [place] % (Auto) 7.5 % (1.0-6.0) H 05/28/18 06:00 Eos % (Auto) 0.4 % (1.5-5.0) L 05/28/18 06:00 Baso % (Auto) 0.1 % (0.0-3.0) 05/28/18 06:00 Gran # 8.47 (1.4-6.5) H 05/28/18 06:00 Lymph # (Auto) 2.0 (1.2-3.4) 05/28/18 06:00 [place] # (Auto) 0.9 (0.1-0.6) H 05/28/18 06:00 Eos # (Auto) 0.1 (0.0-0.7) 05/28/18 06:00 Baso # (Auto) 0.01 K/mm3 (0.0-2.0) 05/28/18 06:00 PT 13.8 SECONDS (9.4-12.5) H 05/27/18 10:25 INR 1.20 05/27/18 10:25 APTT 27.0 Seconds (25.1-36.5) 05/27/18 10:25 Sodium 138 mmol/L (132-148) 05/28/18 06:00 Potassium 4.1 mmol/L (3.6-5.0) 05/28/18 06:00 Chloride 106 mmol/L (98-107) 05/28/18 06:00 Carbon Dioxide 24 mmol/L (21-33) 05/28/18 06:00 Anion Gap 13 (10-20) 05/28/18 06:00 BUN 9 mg/dL (7-21) 05/28/18 06:00 Creatinine 0.8 mg/dl (0.8-1.5) 05/28/18 06:00 Est GFR ( Amer) > 60 05/28/18 06:00 Est GFR (Non-Af Amer) > 60 05/28/18 06:00 POC Glucose (mg/dL) 129 mg/dL (65-110) H 05/29/18 21:42 Random Glucose 193 mg/dL (70-110) H 05/28/18 06:00 Calcium 8.0 mg/dL (8.4-10.5) L 05/28/18 06:00 Phosphorus 3.1 mg/dL (2.5-4.5) 05/28/18 06:00 Magnesium 1.9 mg/dL (1.7-2.2) 05/28/18 06:00 Blood Type A POSITIVE 05/27/18 10:25 Antibody Screen Negative 05/27/18 10:25 BBK History Checked Patient has bt 05/27/18 10:25 - Hospital Course Hospital Course: Patient was admitted s/p open right hemicolectomy for large colon polyps in the ascending colon seen on colonoscopy. Patient tolerated procedure well and was admitted to the med/surg floor for post operative care. Post operative course uncomplicated. Patient tolerating diet, pain controlled and was in suitable condition for d/c on POD3. - Date & Time of H&P Date of H&P: 05/27/18 Time of H&P: 07:00 Discharge Exam - Head Exam Head Exam: ATRAUMATIC, NORMOCEPHALIC - Eye Exam Eye Exam: EOMI, Normal appearance - ENT Exam ENT Exam: Mucous Membranes Moist - Respiratory Exam Respiratory Exam: NORMAL BREATHING PATTERN. absent: Respiratory Distress - Cardiovascular Exam Cardiovascular Exam: REGULAR RHYTHM. absent: Tachycardia - GI/Abdominal Exam GI & Abdominal Exam: Diminished Bowel Sounds (midline incision CDI ), Soft. absent: Distended, Tenderness - Extremities Exam Extremities exam: normal inspection - Neurological Exam Neurological exam: Alert, Oriented x3 - Psychiatric Exam Psychiatric exam: Normal Affect, Normal Mood - Skin Skin Exam: Dry, Normal Color, Warm Discharge Plan - Discharge Medications Prescriptions: traMADol [Ultram] 50 mg PO Q6 PRN #20 tab PRN Reason: Pain, Moderate (4-7) - Follow Up Plan Condition: GOOD Disposition: HOME/ ROUTINE Patient education suggested?: Yes Instructions: Colectomy, Partial and Total, (DC), Laceration Repair With Glue (DC) Additional Instructions: no lifting greater than 15lbs for up to 6 weeks or until cleared by Dr. Engel. Can shower, no baths or hot tubs. Can resume regular diet. Return if vomiting, fever, or concern for wound infection. Call office for any questions/concerns and follow up appointment Referrals: Nigel Pugh MD [Primary Care Provider] - Massimo Engel MD [Staff Provider] -
== END 2018-05-30 13:03 | disposition home or self-care (01) | DRG 331 ==
LOC: SDAINP 09:24 → EDSTATUS 11:15 → 3RSO 17:52
PROVIDERS: ADMIT General Practice; ATTEND General Practice
PROC: 0DTF0ZZ Resection of Right Large Intestine, Open Approach (ICD-10-PCS; principal; 2018-05-27 13:05)
DX: D12.2 Benign neoplasm of ascending colon (principal); N40.0 Benign prostatic hyperplasia without lower urinary tract symptoms; I10 Essential (primary) hypertension; E78.5 Hyperlipidemia, unspecified; E11.9 Type 2 diabetes mellitus without complications; K64.8 Other hemorrhoids; Z87.442 Personal history of urinary calculi; Z87.891 Personal history of nicotine dependence